=== PATIENT | male | born 1970 ===

== ENCOUNTER 2018-07-12 13:00 | Emergency (ER) | payer OTHER ==
[~2018-07-12] VITALS: Ht 193 cm; Wt 124.7 kg
[~2018-07-12 13:00] MED LIST: LEVAQUIN500 MG PO; RELAFEN 750MG PO
[2018-07-12] MEDS ORDERED: SEPTRA (13:56)
== END 2018-07-12 22:13 | disposition home or self-care (01) ==
LOC: ER 13:00
DX: N39.0 Urinary tract infection, site not specified (principal)